=== PATIENT | female | born 1985 | race Two or more races ===

== ENCOUNTER 2024-09-08 17:43 | Emergency (ER) | payer SELFPAY ==
[~2024-09-08] VITALS: Ht 180.3 cm; Wt 76.7 kg
[2024-09-08 17:58] VITALS: BP 128/80; PULSE 77; RESP 16; O2SAT 98
== END 2024-09-08 18:44 | disposition left against medical advice (07) ==
LOC: ER 17:43
DX: S81.011A Laceration without foreign body, right knee, initial encounter (principal); Z53.21 Procedure and treatment not carried out due to patient leaving prior to being seen by health care provider; X58.XXXA Exposure to other specified factors, initial encounter; Y93.89 Activity, other specified; Y92.89 Other specified places as the place of occurrence of the external cause; Y99.8 Other external cause status